=== PATIENT | female | born 1985 | race African-American/Black ===

== ENCOUNTER 2021-04-18 20:44 | Emergency (ER) | payer OTHER ==
[2021-04-18 21:01] VITALS: TEMP 97.9; BMI 23.6
[2021-04-18] MEDS ORDERED: ACETAMINOPHEN 325 MG TABLET (FP) PO ONE (21:14)
[2021-04-18] MEDS ORDERED: predniSONE 10 MG TABLET (UD) PO ONE (21:17)
[2021-04-18] MEDS ORDERED: KETOROLAC TROMETHAMINE 30 MG/1 ML VIAL IM ONE (21:17)
[2021-04-18] MEDS ORDERED: predniSONE 10 MG TABLET (UD) ONE (21:38)
[2021-04-18] MEDS ORDERED: ACETAMINOPHEN 325 MG TABLET (FP) ONE (21:38)
[2021-04-18] MEDS ORDERED: KETOROLAC TROMETHAMINE 30 MG/1 ML VIAL ONE (21:38)
[2021-04-18 22:05] LABS: BASO % 0.7 % (0-2.0); EOS % 0.3 % (0-4.5); HEMATOCRIT 38.3 % (32.4-45.2); HEMOGLOBIN 12.7 GM/dL (10.7-15.3); LYMPH % 48.3 % (8-40); MCH 31.2 pg (25.7-33.7); MCHC 33.1 g/dl (32.0-36.0); MEAN CELL VOLUME 94.2 fl (80-96); MEAN PLT VOLUME 7.8 fl (7.5-11.1); MONO % 8.5 % (3.8-10.2); NEUT % 42.2 % (42.8-82.8); PLATELET COUNT 190 10^3/uL (134-434); RBC 4.07 M/mm3 (3.60-5.2); RDW 13.1 % (11.6-15.6); WHITE BLOOD COUNT 5.4 K/mm3 (4.0-10.0)
[2021-04-18 22:32] LABS: CALCIUM 8.5 mg/dL (8.5-10.1)
[2021-04-18 22:33] LABS: ALBUMIN 3.5 g/dl (3.4-5.0); BLOOD UREA NITROGEN 8.5 mg/dL (7-18)
[2021-04-18 22:36] LABS: CREATININE 0.6 mg/dL (0.55-1.3)
[2021-04-18 22:38] LABS: TOT PROT 6.7 g/dl (6.4-8.2)
[2021-04-18 22:41] LABS: BILIRUBIN,TOTAL 0.4 mg/dL (0.2-1)
[2021-04-18 23:22] VITALS: BP 120/67; PULSE 64
== END 2021-04-18 23:25 ==
LOC: JER 20:44
PROC: 3E0233Z Introduction of Anti-inflammatory into Muscle, Percutaneous Approach (ICD-10-PCS; principal; 2021-04-18)
DX: M06.9 Rheumatoid arthritis, unspecified (principal); M79.604 Pain in right leg
CPT/HCPCS: 36415; 80053; 82550; 84703; 85025; 99284-25

== ENCOUNTER 2021-07-05 20:10 | Emergency (ER) | payer OTHER ==
[2021-07-05 20:23] VITALS: BP 110/72; PULSE 94; TEMP 99.1; BMI 20.7
== END 2021-07-05 21:18 | disposition home or self-care (01) ==
LOC: JER 20:10
DX: B34.9 Viral infection, unspecified (principal); Z11.52 Encounter for screening for COVID-19
CPT/HCPCS: 99283-25; C9803; U0003; U0005